=== PATIENT | female | born 1985 | race African-American/Black ===

== ENCOUNTER 2020-03-27 17:32 | Emergency (ER) | payer OTHER ==
[~2020-03-27] VITALS: Ht 165.1 cm; Wt 90.7 kg
[~2020-03-27 17:32] MED LIST: BACTRIM DS TAB1 EACH PO; BENADRYL25 MG PO; DOXYCYCLINE 10100 MG PO; FLEXERIL PO; IBUPROFEN 600600 M1 PO; IBUPROFEN 800800 MG PO; LEVOTHYROXIN0.125 M1 PO; MEDROLDOSEPACK PO; NAPROSYN500 MG PO; NOHOMEMEDICATIONS; NORCO 5-325 TA1 EACH PO; PEPCID40 MG PO; TRAMADOL 50 MG50 MG PO; WELLBUTRIN SR150 MG PO
[2020-03-27 17:44] VITALS: BP 115/80
== END 2020-03-27 19:38 | disposition home or self-care (01) ==
LOC: ER 17:32
DX: G43.909 Migraine, unspecified, not intractable, without status migrainosus (principal); M54.2 Cervicalgia; F17.210 Nicotine dependence, cigarettes, uncomplicated; Z79.899 Other long term (current) drug therapy; Z91.010 Allergy to peanuts